=== PATIENT | male | born 1955 | race Caucasian/White ===

== ENCOUNTER → 2024-02-03 13:58 | Outpatient (REF) | payer MEDICARE, OTHER, SELFPAY ==
[2024-02-03 15:52] LABS: % Basophils 0.3 % (0-2); % Eosinophils 1.9 % (0-6); % Immature Granulocytes 0.3 % (0-0.5); % Lymphocytes 27.3 % (20.5-51.1); % Monocytes 7.2 % (1.7-9.3); Absolute Eosinophils 0.1 10^3/uL (0-0.7); Absolute Lymphocytes 2.1 10^3/uL (1.2-3.4); Absolute Monocytes 0.5 10^3/uL (0.1-0.6); Absolute Neutrophils 4.8 10^3/uL (1.4-6.5); Hematocrit 40.6 % (39.0-52.0); Hemoglobin 13.9 g/dL (13.0-18.0); Mean Corp Hgb Conc. 34.2 g/dL (33.0-37.0); Mean Corpuscular Hgb 32.9 pg (27.0-31.0); Mean Corpuscular Volume 96.2 fL (80.0-94.0); Mean Platelet Volume 9.4 fL (7.4-10.4); Nucleated Red Blood Cells % 0 % (-); Platelet Count 220 10^3/uL (130-400); Red Blood Cell Count 4.22 10^6/uL (4.70-6.10); Red Cell Dist. Width 13.7 % (11.5-14.5); White Blood Cell Count 7.6 10^3/uL (4.8-10.8)
[2024-02-03 16:16] LABS: Blood Urea Nitrogen 17 mg/dl (9-20); Calcium 9.7 mg/dl (8.4-10.2); Carbon Dioxide 26 mmol/L (22-30); Chloride 102 mmol/L (98-107); Glucose 127 mg/dl (70-99); Potassium 4.5 mmol/L (3.5-5.1); Sodium 137 mmol/L (135-145); eGFR > 60.00
== END ==
LOC: REG 13:58
PROVIDERS: ATTENDING PHYSICIAN Orthopaedic Surgery Hand Surgery; FAMILY PHYSICIAN Internal Medicine
DX: Z01.818 Encounter for other preprocedural examination (principal)
CPT/HCPCS: 36415; 80048; 85025; 93005

== ENCOUNTER → 2024-02-29 15:58 | Outpatient (REF) | payer MEDICARE, OTHER, SELFPAY | LOC: HWRAD 15:58 | PROVIDERS: ATTENDING PHYSICIAN Orthopaedic Surgery Hand Surgery; FAMILY PHYSICIAN Internal Medicine | DX: M75.120 Complete rotator cuff tear or rupture of unspecified shoulder, not specified as traumatic (principal) | CPT/HCPCS: 73200 ==

== ENCOUNTER → 2025-02-13 13:50 | Outpatient (REF) | payer MEDICARE, OTHER, SELFPAY | LOC: HWRAD 13:50 | PROVIDERS: ATTENDING PHYSICIAN Family Medicine; FAMILY PHYSICIAN Internal Medicine | DX: R55 Syncope and collapse (principal); I10 Essential (primary) hypertension | CPT/HCPCS: 93880 ==

== ENCOUNTER → 2025-02-14 13:34 | Outpatient (REF) | payer MEDICARE, OTHER, SELFPAY | LOC: HWRAD 13:34 | PROVIDERS: ATTENDING PHYSICIAN Family Medicine; FAMILY PHYSICIAN Internal Medicine | DX: E78.5 Hyperlipidemia, unspecified (principal) | CPT/HCPCS: 75571 ==

== ENCOUNTER → 2025-05-24 07:22 | Outpatient (REF) | payer MEDICARE, OTHER, SELFPAY | LOC: MRI 3T 07:22 | PROVIDERS: ATTENDING PHYSICIAN Internal Medicine | DX: I10 Essential (primary) hypertension (principal); R26.9 Unspecified abnormalities of gait and mobility; R41.89 Other symptoms and signs involving cognitive functions and awareness | CPT/HCPCS: 70551 ==

== ENCOUNTER → 2025-06-12 07:30 | Outpatient (REF) | payer MEDICARE, OTHER, SELFPAY | LOC: HWRAD 07:30 | PROVIDERS: ATTENDING PHYSICIAN Internal Medicine | DX: I65.23 Occlusion and stenosis of bilateral carotid arteries (principal); I67.9 Cerebrovascular disease, unspecified; E11.65 Type 2 diabetes mellitus with hyperglycemia | CPT/HCPCS: 93880 ==

== ENCOUNTER → 2025-06-14 13:57 | Outpatient (REF) | payer MEDICARE, OTHER, SELFPAY | LOC: RCS 13:57 | PROVIDERS: ATTENDING PHYSICIAN Internal Medicine | DX: I65.23 Occlusion and stenosis of bilateral carotid arteries (principal) | CPT/HCPCS: 93306 ==

== ENCOUNTER → 2025-06-16 13:32 | Outpatient (REF) | payer MEDICARE, OTHER, SELFPAY | LOC: HWRAD 13:32 | PROVIDERS: ATTENDING PHYSICIAN Orthopaedic Surgery Hand Surgery; FAMILY PHYSICIAN Internal Medicine | DX: Z96.611 Presence of right artificial shoulder joint (principal); M25.511 Pain in right shoulder | CPT/HCPCS: 73200 ==

== ENCOUNTER → 2025-08-03 13:30 | Outpatient (REF) | payer MEDICARE, OTHER, SELFPAY ==
[2025-08-03 13:48] VITALS: BP 154/86; BP_SYST 81
== END ==
LOC: RADI 13:30
PROVIDERS: ATTENDING PHYSICIAN Orthopaedic Surgery Hand Surgery; FAMILY PHYSICIAN Internal Medicine
DX: M25.511 Pain in right shoulder (principal); Z96.611 Presence of right artificial shoulder joint
CPT/HCPCS: 20610; 77002; 87015; 87070; 87205

== ENCOUNTER → 2025-10-31 13:28 | Outpatient (REF) | payer MEDICARE, OTHER, SELFPAY ==
[2025-10-31 13:53] VITALS: BP 166/82; BP_SYST 83
== END ==
LOC: RADI 13:28
PROVIDERS: ATTENDING PHYSICIAN Orthopaedic Surgery Hand Surgery; FAMILY PHYSICIAN Internal Medicine
DX: M25.411 Effusion, right shoulder (principal); M25.511 Pain in right shoulder; Z96.611 Presence of right artificial shoulder joint
CPT/HCPCS: 20611; 77002; 87015; 87070; 87205